=== PATIENT | male | born 1985 | race Caucasian/White ===

== ENCOUNTER 2020-07-02 15:35 | Emergency (ER) | payer MEDICAID ==
[~2020-07-02] VITALS: Ht 193 cm; Wt 111.0 kg
[~2020-07-02 15:35] MED LIST: ALBU8HFA PO; DOCU-28 PO; LIDOcaine 1% W/epiNEPHrine 1:100,000 20ml vial ONE; NO HOME MEDS
[2020-07-02 15:42] VITALS: BP 115/83
--- NOTE | 2020-07-02 16:58 | NUR ---
VICKI JOY AT BEDSIDE
[2020-07-02] MEDS ORDERED: CEPH250T PO (17:16)
[2020-07-02] MEDS ORDERED: HYDR-3965 PO (17:16)
== END 2020-07-02 17:49 | disposition home or self-care (01) ==
LOC: ER 15:36
DX: S80.11XA Contusion of right lower leg, initial encounter (principal); L03.115 Cellulitis of right lower limb; Z72.89 Other problems related to lifestyle; Z98.890 Other specified postprocedural states; Z79.2 Long term (current) use of antibiotics; Z79.899 Other long term (current) drug therapy; W20.8XXA Other cause of strike by thrown, projected or falling object, initial encounter; Y93.89 Activity, other specified; Y92.89 Other specified places as the place of occurrence of the external cause; Y99.8 Other external cause status
CPT/HCPCS: 10160; 99283; 99284

== ENCOUNTER 2020-07-15 15:19 | Emergency (ER) | payer MEDICAID ==
[~2020-07-15] VITALS: Ht 193 cm; Wt 109.9 kg
[~2020-07-15 15:19] MED LIST changes: +HYDR-3965 PO; -LIDOcaine 1% W/epiNEPHrine 1:100,000 20ml vial ONE
[2020-07-15 15:36] VITALS: BP 141/99
[2020-07-15] MEDS ORDERED: BACI28OI9 TP (16:07)
== END 2020-07-15 16:25 | disposition home or self-care (01) ==
LOC: ER 15:20
DX: S81.801A Unspecified open wound, right lower leg, initial encounter (principal); Z90.89 Acquired absence of other organs; Z72.89 Other problems related to lifestyle; Z98.890 Other specified postprocedural states; Z79.2 Long term (current) use of antibiotics; Z79.899 Other long term (current) drug therapy; X58.XXXA Exposure to other specified factors, initial encounter; Y93.89 Activity, other specified; Y92.89 Other specified places as the place of occurrence of the external cause; Y99.8 Other external cause status
CPT/HCPCS: 99282; 99283

== ENCOUNTER 2025-01-29 09:21 | Emergency (ER) | payer MEDICAID ==
[~2025-01-29] VITALS: Ht 193 cm; Wt 110.0 kg
[~2025-01-29 09:21] MED LIST changes: +BACI28OI9 TP; -HYDR-3965 PO
[2025-01-29 09:26] VITALS: TEMP 97.5
[2025-01-29] MEDS: LIDOcaine 1% W/epiNEPHrine 1:100,000 20ml vial SQ STA (10:26)
--- NOTE | 2025-01-29 12:23 | Physician Documentation ---
History of Present Illness ~ Chief Complaint: Foot pain Stated Complaint: R FOOT PAIN Time Seen by MD: 10:04 Primary Medical Doctor: NONE HPI Patient is seen today with complaints of having a foreign body stuck in his right foot for few days. Patient states he pulled some of sitting in sharp rock out of the sole of his right foot few days ago states he is getting more painful and he feels they are still some left in it. He has no other concern or complaint at this time. Tetanus witin 5 years: No Medication Reconciliation Allergies: Coded Allergies: No Known Allergies (Unverified , 01/29/25) Scheduled Bacitracin/Pramoxine/Aloe Vera (Bacitracin Plus Ointment), 28 GM TP TID Docusate Sodium (Colace), 1 CAP PO Q12H Ibuprofen (Ibuprofen), 1 TAB PO Q8H Scheduled PRN Hydrocodone Bit/Acetaminophen 5/325 MG (Madison 5/325 MG), 1 TAB PO Q12H PRN PRN for pain albuterol inhaler (Pro-Air Inhaler), 2 PUFFS PO Q4H PRN for SHORTNESS OF BREATH Miscellaneous Medications Home Med List (No Home Medications), (Reported) Past Medical History Past Medical History: Hernia, Psoriasis Past Surgical History: appendectomy Other Past Surgical History: Hernia surgery Alcohol Use: Occasionally Lives In: Home Occupation: employed Review of Systems Constitutional: Denies: chills, fever, weakness Eyes: Denies: pain, blurred vision ENT: Denies: ear pain, nose pain, throat pain, mouth pain Respiratory: Denies: cough, shortness of breath Cardiovascular: Denies: chest pain, palpitations Gastrointestinal: Denies: abdominal pain, nausea, vomiting Genitourinary: Denies: burning, dysuria Male Genitalia: Denies: penile discharge, testicular pain Neurological: Denies: headache, dizziness Musculoskeletal: Denies: pain, swelling Integumentary: Denies: rash, lesions Allergic/Immunologic: Denies: hives, itching Hematologic/Lymphatic: Denies: no symptoms reported Psychiatric: Denies: depression, anxiety Physical Exam Vital Signs: Temperature: 97.5, Source: Oral, Heart Rate: 108, Respiratory Rate: 17, BP: 126/94, Pulse Oximetry: 99, Weight: 110.000 Physical Exam General: Awake and Alert, no acute distress. HEENT: Conjunctiva pink, Sclera clear, Mucus Membranes moist. Neck: Supple without masses and tenderness. Resp: Unlabored. Lungs clear to auscultation bilaterally. Heart: Regular Rate and rhythm, normal S1 and S2 without murmur, rub or gallop. Extremities: No cyanosis,clubbing or edema. Skin: Patient on exam does have erythema and significant tenderness to palpation surrounding a centralized wound on the plantar surface of the patient's right heel. There was no purulent drainage at this time. Procedures I&D Procedure : Procedure Note Procedure note: 3 cc of 1% lidocaine with epinephrine was used to achieve local anesthesia of the localize abscess of the plantar surface of the patient's right heel. Patient tolerated well. Eleven blade was then used to Cb the abscess and a small foreign body approximately 4 mm the appeared to be wood or fail was removed along with about 1 cc of purulent drainage. Wound was irrigated and cleansed and bandaged. Progress Results/Orders Results/Orders Vital Signs 01/29/25 01/29/25 01/29/25 09:26 15:34 16:23 Temp 97.5 Pulse 108 102 Resp 17 14 14 B/P (MAP) 126/94 136/87 (103) Pulse Ox 99 98 O2 Flow Rate 0 Medical Decision Making Findings Patient is seen today with complaints of having a foreign body stuck in his right foot for few days. Patient states he pulled some of sitting in sharp rock out of the sole of his right foot few days ago states he is getting more painful and he feels they are still some left in it. He has no other concern or complaint at this time. Patient tolerated incision and drainage of the abscess of the the patient's right heel. Prescription of Bactrim DS sent to patient's pharmacy. Patient was given dose of Madison 5/325 mg in the ED today along with injection of Toradol 30 mg IM. Prescription of ibuprofen sent to patient's pharmacy. Along with a short prescription for Madison 5/325 mg, patient will return to ED with any worsening, concerning or changing symptoms. Patient will perform daily dressing changes. Departure Disposition: HOME / SELF CARE / HOMELESS Impression: Primary Impression: Abscess Condition: Improved Discharge Instructions: Abscess, Care After Additional Instructions: Patient tolerated incision and drainage of the abscess of the the patient's right heel. Prescription of Bactrim DS sent to patient's pharmacy. Patient was given dose of Madison 5/325 mg in the ED today along with injection of Toradol 30 mg IM. Prescription of ibuprofen sent to patient's pharmacy. Along with a short prescription for Madison 5/325 mg, patient will return to ED with any worsening, concerning or changing symptoms. Patient will perform daily dressing changes. Referrals: NO PRIMARY CARE PROVIDER (PCP) Prescriptions Sulfamethoxazole/Trimethoprim (Bactrim Ds Tablet) 800 Mg-160 Mg Tablet 1 TAB PO Q12H for 10 Days, #20 TAB Prov: ALEIDA WILLIAM 01/30/25 Ibuprofen (Ibuprofen) 800 Mg Tablet 1 TAB PO Q8H for pain for 10 Days, #30 TAB 0 Refills Prov: VIDAL DOYLE 01/29/25 Hydrocodone Bit/Acetaminophen 5/325 MG (Madison 5/325 MG) 5 Mg/325 Mg Tablet 1 TAB PO Q12H PRN PRN for pain for 3 Days, #6 TAB Prov: VIDAL DOYLE 01/29/25 Signature Scribe Signature: No scribe Attestation: No scribe VIDAL DOYLE Jan 29, 2025 12:23 ALEIDA WILLIAM Jan 30, 2025 15:26
[2025-01-29 15:34] VITALS: BP 136/87; PULSE 102; O2SAT 98
[2025-01-29] MEDS ORDERED: HYDR-3965 PO (16:10)
[2025-01-29] MEDS ORDERED: IBUP-1986 PO (16:10)
[2025-01-29 16:23] VITALS: RESP 14
[2025-01-29] MEDS: HYDROcodone/acetaminophen 5mg/325mg tablet PO STA (16:23)
[2025-01-29] MEDS: ketorolac trometh 30MG/ML vial 30 MG/ML VIAL IV STA (16:23)
[2025-01-30] MEDS ORDERED: SULF1TAB49 PO (15:26)
== END 2025-01-29 16:23 | disposition home or self-care (01) ==
LOC: ER 09:22
DX: L02.415 Cutaneous abscess of right lower limb (principal); Z90.49 Acquired absence of other specified parts of digestive tract; Z79.899 Other long term (current) drug therapy; Z72.89 Other problems related to lifestyle
CPT/HCPCS: 10060; 99284; A6449